=== PATIENT | male | born 1990 | race African-American/Black ===

== ENCOUNTER 2019-02-08 03:44 | Emergency (ER) | payer OTHER ==
[~2019-02-08] VITALS: Ht 183.5 cm; Wt 70.3 kg
[~2019-02-08 03:44] MED LIST: BACTRIM DS TAB1 EAC1 ORAL; IBU800 MG PO; LIDODERM700 M1 TOPIC; NKM; ROBAXIN-500MG ORAL
--- NOTE | 2019-02-08 03:52 | NUR ---
ED Nurse Note: Patient presents with complaints of right side abdominal pain x 1 day.
[2019-02-08 04:07] VITALS: BP 119/69
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
[2019-02-08] MEDS ORDERED: Omnipaque-300 100ml vial INJ PRN (04:15)
[2019-02-08 04:20] LABS: BASOPHILS % (AUTO) 1.5 % (0.0-2.0); EOSINOPHILS % (AUTO) 2.3 % (0.0-3.0); HEMATOCRIT 40.4 % (42.0-52.0); HEMOGLOBIN 14.2 G/DL (14.2-18.0); MEAN CORPUSCULAR VOLUME 86 FL (80-99); MONOCYTES % (AUTO) 8.8 % (1.0-10.0); NEUTROPHILS % (AUTO) 38.4 % (45.0-75.0); PLATELET COUNT 215 K/UL (150-450); RED BLOOD COUNT 4.67 M/UL (4.70-6.10); RED CELL DISTRIBUTION WIDTH 11.4 % (11.6-14.8); WHITE BLOOD COUNT 9.3 K/UL (4.8-10.8)
[2019-02-08 04:27] LABS: APPEARANCE,URINE CLEAR; BILIRUBIN, URINE NEGATIVE (NEGATIVE); COLOR,URINE PALE YELLOW; GLUCOSE, URINE (UA) NEGATIVE (NEGATIVE); KETONES,URINE NEGATIVE (NEGATIVE); LEUKOCYTE ESTERASE ,URINE NEGATIVE (NEGATIVE); NITRITE,URINE NEGATIVE (NEGATIVE); PH,URINE 5 (4.5-8.0); PROTEIN,URINE NEGATIVE (NEGATIVE); UROBILINOGEN,URINE NORMAL MG/DL (0.0-1.0)
[2019-02-08 04:28] LABS: ANION GAP 10 mmol/L (5-15); BLOOD UREA NITROGEN 12 mg/dL (7-18); CALCIUM 8.7 MG/DL (8.5-10.1); CARBON DIOXIDE 28 MMOL/L (21-32); CHLORIDE 104 MMOL/L (98-107); CREATININE 0.9 MG/DL (0.55-1.30); POTASSIUM 3.5 MMOL/L (3.5-5.1); SODIUM 142 MMOL/L (136-145)
[2019-02-08 04:32] LABS: ALANINE AMINOTRANSFERASE 31 U/L (12-78); ALBUMIN/GLOBULIN RATIO 1.5 (1.0-2.7); ALKALINE PHOSPHATASE 46 U/L (46-116); ASPARTATE AMINO TRANSFERASE 24 U/L (15-37); BILIRUBIN,TOTAL 0.4 MG/DL (0.2-1.0)
--- NOTE | 2019-02-08 05:02 | NUR ---
ED Nurse Note: Patient went down for CT, accompanied by equip tech.
--- NOTE | 2019-02-08 05:18 | NUR ---
ED Nurse Note: Patient returned from CT.
--- NOTE | 2019-02-08 06:29 | NUR ---
ED Nurse Note: Received a call from stat rad, rendered clinical history to Jimmie. Will continue to monitor patient who is asleep with girlfriend at bedside.
[2019-02-08 06:30] VITALS: BP 109/52
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
[2019-02-08] MEDS ORDERED: MIRALAX17 G2 ORAL (06:42)
--- NOTE | 2019-02-08 07:04 | NUR ---
ED Nurse Note: Patient cleared for discharge by ERMD. Patient verbalized understanding of discharge instructions, ID band removed, IV removed. Patient departed with all belongings accompanied by his girlfried. Patient was ambulatory with steady gait and A&Ox4.
[2019-02-08 07:05] VITALS: BP 109/52
== END 2019-02-08 07:06 | disposition home or self-care (01) ==
LOC: EMR 04:28
DX: K59.00 Constipation, unspecified (principal); R10.31 Right lower quadrant pain; Z88.0 Allergy status to penicillin
CPT/HCPCS: 36415; 74177; 80053; 81003; 83690; 85025; 96361; 96374; J2405; Q9967; Z7502; 99284; J7030

== ENCOUNTER 2019-02-11 14:02 | Emergency (ER) | payer OTHER ==
[~2019-02-11] VITALS: Ht 182.9 cm; Wt 70.3 kg
[~2019-02-11 14:02] MED LIST changes: +MIRALAX17 G2 ORAL
[2019-02-11 14:11] VITALS: BP 120/76
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
[2019-02-11 14:48] VITALS: BP 132/70
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
== END 2019-02-11 14:48 | disposition home or self-care (01) ==
LOC: EMR 14:37
DX: L98.9 Disorder of the skin and subcutaneous tissue, unspecified (principal); Z88.0 Allergy status to penicillin
CPT/HCPCS: 99282

== ENCOUNTER 2019-04-01 00:55 | Emergency (ER) | payer OTHER ==
[~2019-04-01] VITALS: Ht 183.5 cm; Wt 70.3 kg
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
[2019-04-01 01:50] VITALS: BP 106/59
--- NOTE | 2019-04-01 01:50 | NUR ---
ER DISCHARGE NOTE: Patient is cleared to be discharged per ERMD, pt is aox4, on room air, with stable vital signs. pt was given dc and prescription instructions, pt was able to verbalize understanding, pt id band removed without complications. pt is able to ambulate with steady gait. pt took all belongings. pt was escorted to lobby by security, pt was dischargd and continues to sleep, pt would not go and became hostile with staff stating to wait, pt took 1/2 hour to leave afte being discharged.
== END 2019-04-01 01:50 | disposition home or self-care (01) ==
LOC: EMR 01:10
DX: S01.511A Laceration without foreign body of lip, initial encounter (principal); V43.92XA Unspecified car occupant injured in collision with other type car in traffic accident, initial encounter; Y92.9 Unspecified place or not applicable; Z88.0 Allergy status to penicillin
CPT/HCPCS: 99282

== ENCOUNTER 2019-09-05 04:39 | Emergency (ER) | payer OTHER ==
[~2019-09-05] VITALS: Ht 182.9 cm; Wt 70.3 kg
[2019-09-05 04:45] VITALS: BP 118/63
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
--- NOTE | 2019-09-05 04:53 | NUR ---
ED Nurse Note: patient refused medication. states that he would not like any pain medications. ERMD aware.
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
[2019-09-05] MEDS ORDERED: HYDROcodone/Acetamin 5/325 tab ORAL ONE (05:00)
[2019-09-05 05:20] VITALS: BP 120/65
[2019-09-05] MEDS ORDERED: IBUPROFEN600 M1 ORAL (05:22)
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
== END 2019-09-05 05:20 | disposition home or self-care (01) ==
LOC: EMR 04:50
DX: S16.1XXA Strain of muscle, fascia and tendon at neck level, initial encounter (principal); V43.52XA Car driver injured in collision with other type car in traffic accident, initial encounter; Y92.410 Unspecified street and highway as the place of occurrence of the external cause
CPT/HCPCS: 72052; Z7502; 99283

== ENCOUNTER 2020-06-17 00:02 | Emergency (ER) | payer OTHER ==
[~2020-06-17] VITALS: Ht 182.9 cm; Wt 113.4 kg
[~2020-06-17 00:02] MED LIST changes: +IBUPROFEN600 M1 ORAL
[2020-06-17 00:26] VITALS: BP 128/73
[2020-06-17] MEDS ORDERED: IBUPROFEN600 M1 ORAL (00:27)
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
[2020-06-17 01:27] VITALS: BP 129/88
--- NOTE | 2020-06-17 01:29 | NUR ---
Patient was discharge home as EDP ordered. All vital signs were taken within normal range. Patient . All prescriptions and instructions were given to the patient . Patient verbalized understanding. patient left the hospital in stable condition .
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
== END 2020-06-17 01:52 | disposition home or self-care (01) ==
LOC: EMR 00:20
DX: S16.1XXA Strain of muscle, fascia and tendon at neck level, initial encounter (principal); R51.9 Headache, unspecified; V42.5XXA Car driver injured in collision with two- or three-wheeled motor vehicle in traffic accident, initial encounter; Y92.414 Local residential or business street as the place of occurrence of the external cause; Z88.0 Allergy status to penicillin
CPT/HCPCS: 72052; Z7502; 99283